=== PATIENT | male | born 1940 | race Caucasian/White ===

== ENCOUNTER 2019-12-09 15:17 | Inpatient (IN) | payer MEDICARE, OTHER ==
[~2019-12-09] VITALS: Ht 172.7 cm; Wt 127.0 kg
[~2019-12-09 15:17] MED LIST: AMLO-258 PO; ATEN25TA PO; ATOR40TA69 PO; ETOMIDATE 2 MG/ML 10 ML VIAL IVP ONE; EXEN10PE3 SQ; HYDR25TA PO; LOSA100T58 PO; OMEP20CA12 PO; SUCCINYLCHOLINE CHLORIDE 20 MG/ML 10 ML VIAL IVP ONE
[2019-12-09] MEDS ORDERED: ONDANSETRON HCL 4 MG/2 ML VIAL ONE (15:45)
[2019-12-09 16:37] LABS: BASOPHILS % (AUTO) 0.2 % (0.0-5.0); HEMATOCRIT 31.5 % (42-54); LYMPHOCYTES % (AUTO) 8.4 % (21.0-51.0); MEAN CORPUSCULAR HEMOGLOBIN 32.1 pg (27.0-33.0); MEAN CORPUSCULAR HGB CONC 34.3 g/dL (32.0-36.0); MEAN CORPUSCULAR VOLUME 93.8 fL (79-99); MONOCYTES % (AUTO) 5.6 % (3.0-13.0); NEUTROPHILS % (AUTO) 85.4 % (40.0-77.0); PLATELET COUNT (AUTO) 219 K/uL (130-400); RED BLOOD CELL COUNT(AUTO) 3.36 MIL/uL (4.50-6.20); RED CELL DISTRIBUTION WIDTH 13.2 % (11.0-15.5); WHITE BLOOD COUNT (AUTO) 18.4 K/uL (4.8-10.8)
[2019-12-09 16:53] LABS: CREATININE 1.7 mg/dL (0.5-1.5); POTASSIUM 3.5 mmol/L (3.5-5.1)
[2019-12-09 16:55] LABS: INR 1.1 (0.85-1.15); PARTIAL THROMBOPLASTIN TIME 24.5 SEC (26.3-35.5); PROTHROMBIN TIME 11.8 SEC (9.6-11.6)
[2019-12-09 16:58] LABS: ALBUMIN 3.1 g/dL (3.5-5.0); BILIRUBIN,TOTAL 0.5 mg/dL (0.2-1.0)
[2019-12-09] MEDS: ZOSYN 3.375GM+NS 50ML 50 ML IV SCH (17:45)
[2019-12-09] MEDS ORDERED: SODIUM CHLORIDE 0.9% 1000ML 1,000 ML IV SCH (17:54)
[2019-12-09] MEDS ORDERED: MORPHINE SULFATE 2 MG/ML 1ML SYG IVP PRN (18:15)
[2019-12-09] MEDS ORDERED: TRAMADOL /APAP 37.5MG/325MG TAB PO PRN (18:15)
[2019-12-09] MEDS ORDERED: PHARMACY COMMUNICATION MISC PRN (18:30)
[2019-12-09] MEDS ORDERED: LORAZEPAM 2 MG/ML 1 ML VIAL IVP PRN (18:30)
[2019-12-09] MEDS ORDERED: CHLORDIAZEPOXIDE HCL 25 MG CAP PO PRN (18:30)
[2019-12-09] MEDS ORDERED: ZOSYN 3.375GM+NS 50ML 50 ML IV ONE (18:30)
[2019-12-09] MEDS ORDERED: HYDRALAZINE HCL 20 MG/ML VIAL IV PRN (18:30)
[2019-12-09] MEDS ORDERED: NOREPINEPHRINE 4MG/NS 250ML 250 ML IV ONE (19:58)
[2019-12-09 20:06] LABS: BASOPHILS % (AUTO) 0.2 % (0.0-5.0); EOSINOPHILS % (AUTO) 0.9 % (0.0-8.0); HEMATOCRIT 29.8 % (42-54); LYMPHOCYTES % (AUTO) 5.7 % (21.0-51.0); MEAN CORPUSCULAR HEMOGLOBIN 32.5 pg (27.0-33.0); MEAN CORPUSCULAR HGB CONC 34.2 g/dL (32.0-36.0); MEAN CORPUSCULAR VOLUME 94.9 fL (79-99); MONOCYTES % (AUTO) 4.7 % (3.0-13.0); NEUTROPHILS % (AUTO) 87.8 % (40.0-77.0); PLATELET COUNT (AUTO) 211 K/uL (130-400); RED BLOOD CELL COUNT(AUTO) 3.14 MIL/uL (4.50-6.20); RED CELL DISTRIBUTION WIDTH 13.3 % (11.0-15.5); WHITE BLOOD COUNT (AUTO) 18.2 K/uL (4.8-10.8)
[2019-12-09 20:18] LABS: HEMOGLOBIN A1C 7.2 % (4.0-6.0)
[2019-12-09 20:19] LABS: ABG BASE EXCESS -3.1 mmol/L (-2.0-3.0); ABG HCO3 21.8 mmol/L (21.0-28.0); ABG OXYGEN SATURATION 97.1 % (95.0-99.0); ABG PCO2 39 mmHg (35-48)
[2019-12-09 20:37] LABS: THYROID STIMULATING HORMONE 0.82 uIU/mL (0.36-3.74)
[2019-12-09] MEDS: FAMOTIDINE/PF 20 MG/2 ML VIAL IV SCH (21:00)
[2019-12-09] MEDS: INSULIN HUMULIN R 100 UNIT/ML 3ML SQ SCH (21:00)
[2019-12-09] MEDS: ATENOLOL 25 MG TABLET PO SCH (21:00)
[2019-12-09] MEDS ORDERED: FAMOTIDINE/PF 20 MG/2 ML VIAL IV ONE (21:51)
[2019-12-09] MEDS ORDERED: INSULIN HUMULIN R 100 UNIT/ML 3ML ONE (21:51)
[2019-12-09] MEDS ORDERED: HUMAN PROTHROMBIN COMPLX(PCC) 500 UNIT KIT IV ONE (22:35)
[2019-12-09] MEDS ORDERED: HUMAN PROTHROMBIN COMPLX(PCC) 500 UNIT KIT IV SCH (23:15)
[2019-12-10] VITALS (28 sets, daily range): BP systolic 70–204; BP diastolic 40–108
[2019-12-10 00:28] LABS: APPEARANCE,URINE Cloudy (CLEAR); BILIRUBIN,URINE Negative (NEGATIVE); COLOR,URINE Dark Yellow (YELLOW); GLUCOSE, URINE (UA) Negative (NEGATIVE); KETONES,URINE Trace mg/dL (NEGATIVE); LEUKOCYTE ESTERASE ,URINE Negative (NEGATIVE); NITRATE,URINE Negative (NEGATIVE); OCCULT BLOOD,URINE Negative (NEGATIVE); PROTEIN,URINE POS 2+ mg/dL (NEGATIVE)
[2019-12-10 00:37] LABS: AMORPHOUS SEDIMENT,UR Many /LPF (None Seen); BACTERIA,URINE None Seen /HPF (None Seen); MUCUS,URINE Many LPF (None Seen); RBC,URINE 0-1 /HPF (0-1); SQUAMOUS EPITHELIAL CELL,UR Moderate /HPF (0-2); WBC,URINE None Seen /HPF (0-1)
[2019-12-10 01:18] LABS: CREATININE,URINE RANDOM 258 mg/dL (30-135); SODIUM,URINE RANDOM 51 mmol/l (40-220)
[2019-12-10] MEDS ORDERED: LACTATED RINGERS 1000ML 1,000 ML IV ONE (01:43)
[2019-12-10] MEDS ORDERED: LACTATED RINGERS 1000ML 1,000 ML IV SCH (03:30)
[2019-12-10] MEDS ORDERED: ONDANSETRON HCL 4 MG/2 ML VIAL ONE (04:43)
[2019-12-10] MEDS: ZOSYN 3.375GM+NS 50ML 50 ML IV SCH ×2 (05:28→16:56)
[2019-12-10 06:12] LABS: BASOPHILS % (AUTO) 0.1 % (0.0-5.0); HEMATOCRIT 27.1 % (42-54); LYMPHOCYTES % (AUTO) 8.5 % (21.0-51.0); MEAN CORPUSCULAR HEMOGLOBIN 32.9 pg (27.0-33.0); MEAN CORPUSCULAR HGB CONC 35.4 g/dL (32.0-36.0); MEAN CORPUSCULAR VOLUME 92.8 fL (79-99); MONOCYTES % (AUTO) 8.8 % (3.0-13.0); PLATELET COUNT (AUTO) 207 K/uL (130-400); RED BLOOD CELL COUNT(AUTO) 2.92 MIL/uL (4.50-6.20); RED CELL DISTRIBUTION WIDTH 13.5 % (11.0-15.5); WHITE BLOOD COUNT (AUTO) 16.5 K/uL (4.8-10.8)
[2019-12-10 06:22] LABS: CREATININE 2.7 mg/dL (0.5-1.5); POTASSIUM 4.2 mmol/L (3.5-5.1)
[2019-12-10] MEDS ORDERED: SIMV40TA59 PO (07:45)
[2019-12-10] MEDS ORDERED: ASPI-556 PO (07:45)
[2019-12-10] MEDS ORDERED: APIX5TAB PO (07:45)
[2019-12-10] MEDS ORDERED: METF-444 PO (07:45)
--- NOTE | 2019-12-10 08:00 | NUR ---
assessment assumed care. aa&ox3. no distress noted. reports feeling "sore" from lower and mid back, relieved with rest. o2 2l nc. bedside monitoring. levophed drip infusing via piv left hand. no signs of infiltration. weaning as per icu protocol. oakes with scant amt of urine in bag. valuables at bedside- wallet and yellow necklace. called security to put items in safe per patient's consent. full assessment documented.
[2019-12-10] MEDS: INSULIN HUMULIN R 100 UNIT/ML 3ML SQ SCH ×4 (08:06→21:00)
[2019-12-10] MEDS ORDERED: MULTIVITAMIN TABLET PO SCH (09:00)
[2019-12-10] MEDS ORDERED: FOLIC ACID 1 MG TABLET PO SCH (09:00)
[2019-12-10] MEDS ORDERED: THIAMINE HCL 100 MG TABLET PO SCH (09:00)
[2019-12-10] MEDS: ATENOLOL 25 MG TABLET PO SCH ×2 (09:00→21:00)
[2019-12-10] MEDS: FAMOTIDINE/PF 20 MG/2 ML VIAL IV SCH (09:23)
[2019-12-10] MEDS ORDERED: SODIUM CHLORIDE 0.9% 1000ML 2,000 ML IV ONE (12:27)
[2019-12-10] MEDS ORDERED: SODIUM CHLORIDE 0.9% 1000ML 1,000 ML IV SCH (12:30)
[2019-12-10] MEDS: SODIUM CHLORIDE 0.9% 1000ML IV SCH ×2 (13:00→21:20)
[2019-12-10 14:18] LABS: BASOPHILS % (AUTO) 0.1 % (0.0-5.0); HEMATOCRIT 24.3 % (42-54); LYMPHOCYTES % (AUTO) 9.9 % (21.0-51.0); MEAN CORPUSCULAR HGB CONC 34.2 g/dL (32.0-36.0); MEAN CORPUSCULAR VOLUME 93.8 fL (79-99); MONOCYTES % (AUTO) 12.6 % (3.0-13.0); NEUTROPHILS % (AUTO) 76.6 % (40.0-77.0); PLATELET COUNT (AUTO) 179 K/uL (130-400); RED BLOOD CELL COUNT(AUTO) 2.59 MIL/uL (4.50-6.20); WHITE BLOOD COUNT (AUTO) 17.2 K/uL (4.8-10.8)
--- NOTE | 2019-12-10 16:30 | NUR ---
CM NOTE CM attempted phone call to phone number in chart [phone]. No answer, unable to leave message. CM to reattempt call.
[2019-12-10] MEDS ORDERED: PHARMACY COMMUNICATION MISC SCH ×3 (18:15→21:00)
[2019-12-10 18:42] LABS: ABG BASE EXCESS -14.6 mmol/L (-2.0-3.0); ABG HCO3 12.3 mmol/L (21.0-28.0); ABG OXYGEN SATURATION 98.8 % (95.0-99.0); ABG PCO2 33 mmHg (35-48)
[2019-12-10] MEDS ORDERED: SODIUM BICARB 50MEQ 50ML VIAL ONE (18:44)
[2019-12-10 19:00] LABS: BASOPHILS % (AUTO) 0.2 % (0.0-5.0); EOSINOPHILS % (AUTO) 0.1 % (0.0-8.0); HEMATOCRIT 23.1 % (42-54); LYMPHOCYTES % (AUTO) 20.4 % (21.0-51.0); MEAN CORPUSCULAR HEMOGLOBIN 32.3 pg (27.0-33.0); MEAN CORPUSCULAR HGB CONC 32.5 g/dL (32.0-36.0); MEAN CORPUSCULAR VOLUME 99.6 fL (79-99); MONOCYTES % (AUTO) 7.6 % (3.0-13.0); NEUTROPHILS % (AUTO) 70.4 % (40.0-77.0); NUCLEATED RED BLOOD CELLS 0.1 % (0.0-0.19); PLATELET COUNT (AUTO) 183 K/uL (130-400); RED BLOOD CELL COUNT(AUTO) 2.32 MIL/uL (4.50-6.20); RED CELL DISTRIBUTION WIDTH 14.4 % (11.0-15.5); WHITE BLOOD COUNT (AUTO) 19.7 K/uL (4.8-10.8)
[2019-12-10 19:05] LABS: INR 1.06 (0.85-1.15); PROTHROMBIN TIME 11.4 SEC (9.6-11.6)
[2019-12-10 19:06] LABS: CREATININE 3.7 mg/dL (0.5-1.5); POTASSIUM 3.9 mmol/L (3.5-5.1)
[2019-12-10 19:16] LABS: ALBUMIN 2.6 g/dL (3.5-5.0); BILIRUBIN,TOTAL 0.5 mg/dL (0.2-1.0); TOTAL PROTEIN, SERUM 5.5 g/dL (6.0-8.3)
[2019-12-10] MEDS ORDERED: SODIUM BICARB 50MEQ 50ML VIAL IV STA (19:20)
[2019-12-10] MEDS ORDERED: NOREPINEPHRINE 4MG/NS 250ML 250 ML IV ONE (19:29)
[2019-12-10] MEDS ORDERED: SODIUM CHLORIDE 0.9% 500ML 500 ML IV ONE (19:30)
[2019-12-10] MEDS ORDERED: NOREPINEPHRINE BITARTRATE 8 MG/NS 250ML IV SCH ×2 (21:00)
[2019-12-10] MEDS: MIDAZOLAM 50MG-0.9% NS 50ML 50 ML IV SCH (21:22)
[2019-12-10 22:21] LABS: ABG BASE EXCESS -5.8 mmol/L (-2.0-3.0); ABG HCO3 19.1 mmol/L (21.0-28.0); ABG OXYGEN SATURATION 98.6 % (95.0-99.0); ABG PCO2 35 mmHg (35-48)
[2019-12-10] MEDS ORDERED: HUMAN PROTHROMBIN COMPLX(PCC) 500 UNIT KIT IV SCH (23:00)
[2019-12-11] VITALS (24 sets, daily range): BP systolic 100–125; BP diastolic 42–60
[2019-12-11 00:19] LABS: BASOPHILS % (AUTO) 0.2 % (0.0-5.0); EOSINOPHILS % (AUTO) 0.9 % (0.0-8.0); HEMATOCRIT 26.3 % (42-54); LYMPHOCYTES % (AUTO) 8.2 % (21.0-51.0); MEAN CORPUSCULAR HEMOGLOBIN 31.6 pg (27.0-33.0); MEAN CORPUSCULAR VOLUME 90.4 fL (79-99); MONOCYTES % (AUTO) 12.1 % (3.0-13.0); NEUTROPHILS % (AUTO) 77.6 % (40.0-77.0); PLATELET COUNT (AUTO) 147 K/uL (130-400); RED BLOOD CELL COUNT(AUTO) 2.91 MIL/uL (4.50-6.20); RED CELL DISTRIBUTION WIDTH 13.6 % (11.0-15.5); WHITE BLOOD COUNT (AUTO) 17.9 K/uL (4.8-10.8)
[2019-12-11 04:20] LABS: BASOPHILS % (AUTO) 0.2 % (0.0-5.0); EOSINOPHILS % (AUTO) 0.7 % (0.0-8.0); HEMATOCRIT 26.7 % (42-54); LYMPHOCYTES % (AUTO) 9.5 % (21.0-51.0); MEAN CORPUSCULAR HGB CONC 34.8 g/dL (32.0-36.0); MONOCYTES % (AUTO) 12.3 % (3.0-13.0); NEUTROPHILS % (AUTO) 76.3 % (40.0-77.0); PLATELET COUNT (AUTO) 148 K/uL (130-400); RED CELL DISTRIBUTION WIDTH 14.2 % (11.0-15.5); WHITE BLOOD COUNT (AUTO) 17.7 K/uL (4.8-10.8)
[2019-12-11 04:40] LABS: CREATININE 3.6 mg/dL (0.5-1.5); POTASSIUM 3.9 mmol/L (3.5-5.1)
[2019-12-11 04:54] LABS: % IRON SATURATION 31.1 % (30-44)
[2019-12-11 05:03] LABS: ABG BASE EXCESS -3.2 mmol/L (-2.0-3.0); ABG HCO3 20.7 mmol/L (21.0-28.0); ABG PCO2 34 mmHg (35-48)
[2019-12-11] MEDS: SODIUM CHLORIDE 0.9% 1000ML IV SCH ×3 (05:13→21:00)
[2019-12-11] MEDS: ZOSYN 3.375GM+NS 50ML 50 ML IV SCH ×2 (06:13→17:13)
[2019-12-11] MEDS: INSULIN HUMULIN R 100 UNIT/ML 3ML SQ SCH ×4 (07:02→21:00)
[2019-12-11] MEDS ORDERED: SODIUM CHLORIDE 0.9% 1000ML 1,000 ML IV SCH (09:00)
--- NOTE | 2019-12-11 09:08 | NUR ---
NOTIFIED DR SIERRA (ON-CALL FOR [facility]) OF CONSULT UPDATED REGARDING PT'S STATUS AND CHAIN OF EVENTS. ORDERS RECEIVED AND CARRIED OUT.
[2019-12-11 09:29] LABS: HEMATOCRIT 24.3 % (42-54); MEAN CORPUSCULAR HEMOGLOBIN 30.8 pg (27.0-33.0); PLATELET COUNT (AUTO) 148 K/uL (130-400); RED BLOOD CELL COUNT(AUTO) 2.76 MIL/uL (4.50-6.20); RED CELL DISTRIBUTION WIDTH 14.6 % (11.0-15.5); WHITE BLOOD COUNT (AUTO) 15.3 K/uL (4.8-10.8)
[2019-12-11] MEDS ORDERED: MAGNESIUM 2GM PREMIX 50ML 50 ML IV ONE (09:59)
[2019-12-11] MEDS: MIDAZOLAM 50MG-0.9% NS 50ML 50 ML IV SCH (10:05)
[2019-12-11] MEDS ORDERED: PHARMACY COMMUNICATION MISC SCH ×3 (10:15→19:45)
[2019-12-11] MEDS ORDERED: NOREPINEPHRINE BITARTRATE 8 MG in DEXTROSE 5%-WATER 250 ML IV SCH (10:15)
[2019-12-11 10:24] LABS: LYMPHOCYTES % (MANUAL) 5 % (22-44); MAN.DIFF COMMENT-IMPRESSION MANUAL DIFFERENTIAL; MONOCYTES % (MANUAL) 1 % (2-9); PLATELET MORPHOLOGY COMMENT ADEQUATE; SEGMENTED NEUTROPHILS % 94 % (40-70)
--- NOTE | 2019-12-11 10:31 | NUR ---
DR SIERRA HERE TO SEE PT UPDATED. HE REVIEWED CHART, MEDICATIONS, LABS, PATIENT STATUS. ORDERS RECEIVED AND CARRIED OUT.
--- NOTE | 2019-12-11 11:27 | NUR ---
CALLED [employer] FOR PACEMAKER INTERROGATION
[2019-12-11] MEDS ORDERED: SODIUM CHLORIDE 0.9% 500ML 500 ML IV ONE (14:06)
--- NOTE | 2019-12-11 14:42 | NUR ---
BLADDER PRESSURE 14mmHg
[2019-12-11 15:54] LABS: CREATININE 3.9 mg/dL (0.5-1.5); POTASSIUM 3.7 mmol/L (3.5-5.1)
--- NOTE | 2019-12-11 15:54 | NUR ---
DEFERRING INITIAL CASE MANAGEMENT DC PLANNING INTERVIEW AT THIS TIME, WILL FOLLOW WHEN CONDITION STABILIZES Addendum: 12/11/19 at 1556 by JOY ANDREWS RN CM Amended: Links added.
[2019-12-11 16:36] LABS: ALBUMIN 2.5 g/dL (3.5-5.0); BILIRUBIN,DIRECT 0.2 mg/dL (0.0-0.3); BILIRUBIN,TOTAL 0.7 mg/dL (0.2-1.0); TOTAL PROTEIN, SERUM 5.5 g/dL (6.0-8.3)
[2019-12-11] MEDS: PANTOPRAZOLE 40 MG/VIAL IVP SCH (17:40)
[2019-12-11] MEDS ORDERED: FENTANYL 1000MCG+NS 100ML 100 ML ONE (19:43)
[2019-12-11] MEDS ORDERED: HUMAN PROTHROMBIN COMPLX(PCC) 500 UNIT KIT IV SCH (20:00)
[2019-12-11] MEDS ORDERED: M.V.I. IV [ADULT] 10 ML, FOLIC ACID 1 MG, THIAMINE HCL 100 MG in SODIUM CHLORIDE 0.9% 1... IV ONE (20:30)
[2019-12-11] MEDS ORDERED: M.V.I. IV [ADULT] 10 ML, FOLIC ACID 1 MG, THIAMINE HCL 100 MG in SODIUM CHLORIDE 0.9% 1... IV SCH (21:00)
[2019-12-11 21:36] LABS: ABG BASE EXCESS -4.3 mmol/L (-2.0-3.0); ABG HCO3 18.9 mmol/L (21.0-28.0); ABG OXYGEN SATURATION 96.7 % (95.0-99.0); ABG PCO2 30 mmHg (35-48)
[2019-12-12] VITALS (21 sets, daily range): BP systolic 95–124; BP diastolic 43–62
[2019-12-12 03:56] LABS: BASOPHILS % (AUTO) 0.2 % (0.0-5.0); EOSINOPHILS % (AUTO) 0.1 % (0.0-8.0); HEMATOCRIT 21.8 % (42-54); LYMPHOCYTES % (AUTO) 9.7 % (21.0-51.0); MEAN CORPUSCULAR HEMOGLOBIN 31.6 pg (27.0-33.0); MEAN CORPUSCULAR HGB CONC 34.4 g/dL (32.0-36.0); MONOCYTES % (AUTO) 11.5 % (3.0-13.0); NEUTROPHILS % (AUTO) 77.6 % (40.0-77.0); PLATELET COUNT (AUTO) 138 K/uL (130-400); RED BLOOD CELL COUNT(AUTO) 2.37 MIL/uL (4.50-6.20); RED CELL DISTRIBUTION WIDTH 15.1 % (11.0-15.5); WHITE BLOOD COUNT (AUTO) 12.9 K/uL (4.8-10.8)
[2019-12-12 04:21] LABS: ALBUMIN 2.3 g/dL (3.5-5.0); BILIRUBIN,TOTAL 0.7 mg/dL (0.2-1.0); CREATININE 3.8 mg/dL (0.5-1.5); POTASSIUM 3.6 mmol/L (3.5-5.1); TOTAL PROTEIN, SERUM 5.4 g/dL (6.0-8.3)
[2019-12-12] MEDS: ZOSYN 3.375GM+NS 50ML 50 ML IV SCH ×2 (06:23→17:42)
[2019-12-12] MEDS: SODIUM CHLORIDE 0.9% 1000ML IV SCH ×3 (06:25→22:05)
[2019-12-12] MEDS: INSULIN HUMULIN R 100 UNIT/ML 3ML SQ SCH ×4 (06:45→21:00)
[2019-12-12] MEDS: PANTOPRAZOLE 40 MG/VIAL IVP SCH (09:00)
--- NOTE | 2019-12-12 09:45 | NUR ---
consulted dr casillas. notified office. order entered in computer.
[2019-12-12] MEDS: FENTANYL 1000MCG+NS 100ML IV.SOLN IV SCH ×2 (10:32→22:02)
[2019-12-12] MEDS ORDERED: LIDOCAINE HCL-MPF 1% 2ML VIAL IJ PRN (10:45)
[2019-12-12] MEDS ORDERED: NITROGLYCERIN 0.4 MG SL TAB SL PRN (10:45)
[2019-12-12] MEDS ORDERED: HEPARIN SODIUM 5000UNIT/ML 1ML VIAL IJ PRN ×2 (10:45)
[2019-12-12] MEDS ORDERED: 0.9% SODIUM CHLORIDE 1000 ML IV BAG IV PRN (10:45)
[2019-12-12] MEDS ORDERED: ACETAMINOPHEN 325 MG TAB PO PRN (10:45)
[2019-12-12] MEDS ORDERED: SODIUM CHLORIDE 0.9% 1000ML 1,000 ML IV PRN (10:45)
[2019-12-12] MEDS ORDERED: ALBUMIN (HUMAN) 25% 100 ML IV ONE (10:58)
--- NOTE | 2019-12-12 11:23 | NUR ---
DC PLAN PATIENT VENTED STILL UNSTABLE. CM WILL CONTINUE TO FOLLOW. Addendum: 12/12/19 at 1124 by ALVARO ONEILL RN CM Amended: Links added.
--- NOTE | 2019-12-12 13:37 | NUR ---
RD NOTIFICATION - TUBE FEEDING Recommend Initiate continuous Nepro @20mls/hr for first5 hours Increase rate as tolerated by 5mL every 5 hours to goal rate. Goal Rate: 45mls/hr (1944 kcal, 87gm Protein, 785mL Free H2) Recommended Flushes: 130mL B1siplz *RN notified, Rec form provided. Pt intubated and sedated. S/p Cardiac arrest and respiratory failure, as per EMR. Pt with Obesity Class III (BMI 40.0). Pt with moderate fluid retention (BLE 3+ edema). Altered renal labs. RD to continue to monitor. Please notify as additional nutrition concerns arise. Thank you. Addendum: 12/12/19 at [address] Amended: Links added.
[2019-12-12] MEDS ORDERED: IOHEXOL 350 MG/ML 100ML INFUS..BTL IV ONE (13:47)
[2019-12-12] MEDS: MIDAZOLAM 50MG-0.9% NS 50ML 50 ML IV SCH ×2 (17:42→22:01)
[2019-12-12] MEDS: M.V.I. IV [ADULT] 10 ML, FOLIC ACID 1 MG, THIAMINE HCL 100 MG in SODIUM CHLORIDE 0.9% 1... IV SCH (22:01)
[2019-12-13] VITALS (21 sets, daily range): BP systolic 107–135; BP diastolic 45–78
[2019-12-13 04:12] LABS: BASOPHILS % (AUTO) 0.1 % (0.0-5.0); EOSINOPHILS % (AUTO) 1.2 % (0.0-8.0); LYMPHOCYTES % (AUTO) 11.1 % (21.0-51.0); MEAN CORPUSCULAR HEMOGLOBIN 31.2 pg (27.0-33.0); MEAN CORPUSCULAR HGB CONC 33.3 g/dL (32.0-36.0); MEAN CORPUSCULAR VOLUME 93.7 fL (79-99); MONOCYTES % (AUTO) 11.7 % (3.0-13.0); NEUTROPHILS % (AUTO) 75.1 % (40.0-77.0); PLATELET COUNT (AUTO) 144 K/uL (130-400); RED BLOOD CELL COUNT(AUTO) 1.89 MIL/uL (4.50-6.20); RED CELL DISTRIBUTION WIDTH 14.9 % (11.0-15.5); WHITE BLOOD COUNT (AUTO) 7.8 K/uL (4.8-10.8)
[2019-12-13 04:19] LABS: HEMATOCRIT 17.7 % (42-54)
[2019-12-13 04:48] LABS: BILIRUBIN,TOTAL 0.7 mg/dL (0.2-1.0); CREATININE 2.7 mg/dL (0.5-1.5); POTASSIUM 3.2 mmol/L (3.5-5.1); TOTAL PROTEIN, SERUM 4.9 g/dL (6.0-8.3)
[2019-12-13] MEDS: SODIUM CHLORIDE 0.9% 1000ML IV SCH ×3 (05:00→21:00)
[2019-12-13] MEDS: ZOSYN 3.375GM+NS 50ML 50 ML IV SCH ×2 (06:05→17:18)
[2019-12-13] MEDS: INSULIN HUMULIN R 100 UNIT/ML 3ML SQ SCH ×4 (06:31→21:00)
[2019-12-13 08:11] LABS: HEPATITIS Bs ANTIGEN SCREEN P Negative (Negative)
[2019-12-13] MEDS ORDERED: SODIUM CHLORIDE 0.9% 500ML 500 ML IV ONE (10:29)
[2019-12-13] MEDS: MIDAZOLAM 50MG-0.9% NS 50ML 50 ML IV SCH ×2 (11:58→15:06)
[2019-12-13 12:36] LABS: INR 0.89 (0.85-1.15); PARTIAL THROMBOPLASTIN TIME 31.1 SEC (26.3-35.5); PROTHROMBIN TIME 9.7 SEC (9.6-11.6)
[2019-12-13] MEDS: PANTOPRAZOLE 40 MG/VIAL IVP SCH (12:53)
--- NOTE | 2019-12-13 14:00 | NUR ---
INITIATED VENT WEANING DECREASED SEDATION. PATIENT BECAME VERY RESTLESS, REACHED AND PULLED ON ET TUBE. WILL INITIATE PRECEDEX ORDERED BY DR MALDONADO.
[2019-12-13] MEDS: FENTANYL 1000MCG+NS 100ML IV.SOLN IV SCH (15:06)
--- NOTE | 2019-12-13 16:07 | NUR ---
DR COLEMAN HERE TO SEE PT UPDATED. HE SPOKE TO DAUGHTER, SPENCER CONNOR IN DETAIL REGARDING PATIENT'S STATUS AND PLAN OF CARE. HE HAD AN EXTENSIVE CONVERSATION WITH HER AND ANSWERED HER QUESTIONS IN DETAIL. ORDER RECEIVED FOR DDAVP.
[2019-12-13] MEDS: SODIUM CHLORIDE 0.9% IJ SCH (17:24)
[2019-12-13] MEDS: DESMOPRESSIN ACETATE IJ SCH (17:24)
[2019-12-13 17:42] LABS: ABG BASE EXCESS -2.4 mmol/L (-2.0-3.0); ABG HCO3 21.1 mmol/L (21.0-28.0); ABG OXYGEN SATURATION 91.7 % (95.0-99.0); ABG PCO2 33 mmHg (35-48)
[2019-12-13 20:58] LABS: BASOPHILS % (AUTO) 0.1 % (0.0-5.0); EOSINOPHILS % (AUTO) 0.6 % (0.0-8.0); HEMATOCRIT 26.5 % (42-54); LYMPHOCYTES % (AUTO) 6.6 % (21.0-51.0); MEAN CORPUSCULAR HEMOGLOBIN 30.5 pg (27.0-33.0); MEAN CORPUSCULAR HGB CONC 32.8 g/dL (32.0-36.0); MONOCYTES % (AUTO) 9.5 % (3.0-13.0); NEUTROPHILS % (AUTO) 82.4 % (40.0-77.0); PLATELET COUNT (AUTO) 158 K/uL (130-400); RED BLOOD CELL COUNT(AUTO) 2.85 MIL/uL (4.50-6.20); RED CELL DISTRIBUTION WIDTH 15.5 % (11.0-15.5); WHITE BLOOD COUNT (AUTO) 10.6 K/uL (4.8-10.8)
[2019-12-13] MEDS: M.V.I. IV [ADULT] 10 ML, FOLIC ACID 1 MG, THIAMINE HCL 100 MG in SODIUM CHLORIDE 0.9% 1... IV SCH (21:00)
[2019-12-14] VITALS (34 sets, daily range): BP systolic 94–139; BP diastolic 45–69
[2019-12-14] MEDS: MIDAZOLAM 50MG-0.9% NS 50ML 50 ML IV SCH (01:11)
[2019-12-14] MEDS ORDERED: NOREPINEPHRINE BITARTRATE 1 MG/1 ML ML IV ONE (02:56)
[2019-12-14 06:27] LABS: BASOPHILS % (AUTO) 0.2 % (0.0-5.0); EOSINOPHILS % (AUTO) 2.5 % (0.0-8.0); LYMPHOCYTES % (AUTO) 10.7 % (21.0-51.0); MEAN CORPUSCULAR HEMOGLOBIN 31.3 pg (27.0-33.0); MEAN CORPUSCULAR HGB CONC 33.9 g/dL (32.0-36.0); MEAN CORPUSCULAR VOLUME 92.1 fL (79-99); MONOCYTES % (AUTO) 12.7 % (3.0-13.0); NEUTROPHILS % (AUTO) 73.4 % (40.0-77.0); PLATELET COUNT (AUTO) 175 K/uL (130-400); RED BLOOD CELL COUNT(AUTO) 3.04 MIL/uL (4.50-6.20); RED CELL DISTRIBUTION WIDTH 15.6 % (11.0-15.5); WHITE BLOOD COUNT (AUTO) 9.4 K/uL (4.8-10.8)
[2019-12-14] MEDS: SODIUM CHLORIDE 0.9% 1000ML IV SCH ×3 (06:30→23:59)
[2019-12-14] MEDS: ZOSYN 3.375GM+NS 50ML 50 ML IV SCH ×2 (06:30→18:26)
[2019-12-14 06:32] LABS: ALBUMIN 2.4 g/dL (3.5-5.0); BILIRUBIN,TOTAL 1.3 mg/dL (0.2-1.0); CREATININE 2.6 mg/dL (0.5-1.5); POTASSIUM 3.4 mmol/L (3.5-5.1); TOTAL PROTEIN, SERUM 6.3 g/dL (6.0-8.3)
[2019-12-14] MEDS: INSULIN HUMULIN R 100 UNIT/ML 3ML SQ SCH ×3 (06:34→18:29)
[2019-12-14] MEDS ORDERED: PHARMACY COMMUNICATION MISC SCH (07:15)
[2019-12-14] MEDS ORDERED: FENTANYL 2500MCG+NS 250ML 250 ML IV PRN (07:45)
[2019-12-14] MEDS: M.V.I. IV [ADULT] 10 ML, FOLIC ACID 1 MG, THIAMINE HCL 100 MG in SODIUM CHLORIDE 0.9% 1... IV SCH (08:13)
[2019-12-14] MEDS: DEXMEDETOMIDINE HCL 400 MCG in SODIUM CHLORIDE 0.9% 100 ML IV SCH ×2 (08:23→21:50)
[2019-12-14] MEDS: PANTOPRAZOLE 40 MG/VIAL IVP SCH (08:30)
--- NOTE | 2019-12-14 08:40 | NUR ---
WEANED OFF FENTANYL AND VERSED, OFF LEVOPHED, STARTED LOW DOSE PRECEDEX TO WEAN OFF VENT. REACTS TO TACTILE STIMULATION
[2019-12-14] MEDS ORDERED: DESMOPRESSIN ACETATE 4 MCG/ML 0 MCG in SODIUM CHLORIDE 0.9% 50 ML IV SCH (09:00)
[2019-12-14] MEDS: FUROSEMIDE 10 MG/ML 4ML VIAL IV SCH ×2 (12:36→23:58)
[2019-12-14] MEDS: LACTULOSE 20 GM/30 ML UDCUP PO PRN (12:36)
--- NOTE | 2019-12-14 14:09 | NUR ---
[place] PLAN VISITED WITH PATIENT. PATIENT VENTED. GABBI WILL CONTINUE TO FOLLOW. Addendum: 12/14/19 at 1410 by ALVARO ONEILL RN CM Amended: Links added.
--- NOTE | 2019-12-14 17:00 | NUR ---
CPAP MODE TOLERATED FOR A FEW HOURS, BUT PT IS NOT WAKING UP ENOUGH TO BE OFF VENT. USING ACCESSORY MUSCLES TO BREATHE. SHALLOW BREATHING
--- NOTE | 2019-12-14 17:45 | NUR ---
DAUGHTER UPDATED ON PTS CONDITION, AND PLAN OF CARE
[2019-12-14] MEDS: SODIUM CHLORIDE 0.9% IJ SCH (18:26)
[2019-12-14] MEDS: DESMOPRESSIN ACETATE IJ SCH (18:26)
[2019-12-15] VITALS (25 sets, daily range): BP systolic 99–144; BP diastolic 43–81
[2019-12-15] MEDS: INSULIN HUMULIN R 100 UNIT/ML 3ML SQ SCH ×5 (00:05→16:30)
[2019-12-15] MEDS: DEXMEDETOMIDINE HCL 400 MCG in SODIUM CHLORIDE 0.9% 100 ML IV SCH ×2 (02:13→08:54)
[2019-12-15] MEDS: SODIUM CHLORIDE 0.9% 1000ML IV SCH ×2 (05:00→13:00)
[2019-12-15] MEDS: ZOSYN 3.375GM+NS 50ML 50 ML IV SCH ×2 (05:08→19:00)
--- NOTE | 2019-12-15 07:15 | NUR ---
SEDATION TURNED OFF AT THIS TIME. PRECEDEX LOW DOSE. WILL CONTINUE TO MONITOR FOR INCREASED LOC AND WEAN OFF VENTILLATOR
--- NOTE | 2019-12-15 07:30 | NUR ---
DAUGHTER UPDATED ON PTS PLAN OF CARE
[2019-12-15 07:54] LABS: BASOPHILS % (AUTO) 0.1 % (0.0-5.0); EOSINOPHILS % (AUTO) 2.7 % (0.0-8.0); LYMPHOCYTES % (AUTO) 8.9 % (21.0-51.0); MEAN CORPUSCULAR HEMOGLOBIN 31.8 pg (27.0-33.0); MEAN CORPUSCULAR HGB CONC 33.8 g/dL (32.0-36.0); MEAN CORPUSCULAR VOLUME 93.9 fL (79-99); MONOCYTES % (AUTO) 10.5 % (3.0-13.0); NEUTROPHILS % (AUTO) 76.9 % (40.0-77.0); PLATELET COUNT (AUTO) 160 K/uL (130-400); RED BLOOD CELL COUNT(AUTO) 2.77 MIL/uL (4.50-6.20); RED CELL DISTRIBUTION WIDTH 15.6 % (11.0-15.5); WHITE BLOOD COUNT (AUTO) 7.9 K/uL (4.8-10.8)
[2019-12-15 08:07] LABS: ALBUMIN 2.2 g/dL (3.5-5.0); BILIRUBIN,TOTAL 1.2 mg/dL (0.2-1.0); CREATININE 2.5 mg/dL (0.5-1.5); MAGNESIUM 1.6 mg/dL (1.80-2.40); PHOSPHORUS 2.3 mg/dL (2.5-4.9); TOTAL PROTEIN, SERUM 6.2 g/dL (6.0-8.3)
[2019-12-15 08:22] LABS: POTASSIUM 2.6 mmol/L (3.5-5.1)
[2019-12-15 08:33] LABS: INR 0.97 (0.85-1.15); PARTIAL THROMBOPLASTIN TIME 31.9 SEC (26.3-35.5); PROTHROMBIN TIME 10.5 SEC (9.6-11.6)
[2019-12-15] MEDS ORDERED: POTASSIUM CHLORIDE 20 MEQ ERTAB PO PRN (08:45)
[2019-12-15] MEDS ORDERED: LIDOCAINE HCL-MPF 1% 2ML VIAL IV PRN (08:45)
[2019-12-15] MEDS ORDERED: MAGNESIUM 2GM PREMIX 50ML 50 ML IV PRN (08:45)
[2019-12-15] MEDS: PANTOPRAZOLE 40 MG/VIAL IVP SCH (09:03)
[2019-12-15] MEDS: MAGNESIUM 2GM PREMIX 50ML 50 ML IV SCH (09:06)
[2019-12-15] MEDS: ONDANSETRON HCL 4 MG/2 ML VIAL IVP PRN ×2 (09:07→16:16)
[2019-12-15] MEDS: LACTULOSE 20 GM/30 ML UDCUP PO PRN ×2 (09:08→16:16)
[2019-12-15] MEDS: M.V.I. IV [ADULT] 10 ML, FOLIC ACID 1 MG, THIAMINE HCL 100 MG in SODIUM CHLORIDE 0.9% 1... IV SCH (09:28)
[2019-12-15] MEDS: POTASSIUM CHLORIDE 20MEQ/100ML 100 ML IV PRN ×3 (09:39→16:15)
[2019-12-15] MEDS: POTASSIUM CHLORIDE 10% ELIXIR 20 MEQ/15 ML UDCUP PO PRN (09:46)
[2019-12-15] MEDS: IPRATROPIUM/ALBUTEROL SULFATE 3 ML SOLUTION IH PRN ×2 (11:16→18:32)
[2019-12-15] MEDS: FUROSEMIDE 10 MG/ML 4ML VIAL IV SCH (12:45)
[2019-12-15 13:46] LABS: ABG BASE EXCESS -3.7 mmol/L (-2.0-3.0); ABG HCO3 19.7 mmol/L (21.0-28.0); ABG OXYGEN SATURATION 94.3 % (95.0-99.0); ABG PCO2 32 mmHg (35-48)
--- NOTE | 2019-12-15 15:00 | NUR ---
LARGE LIQUID BOWEL MOVEMENT AND PASSING FLATUS. BROWN, NO EVIDENCE OF BLEED NOTED
[2019-12-15 15:28] LABS: PHOSPHORUS 3.1 mg/dL (2.5-4.9); POTASSIUM 3.4 mmol/L (3.5-5.1)
--- NOTE | 2019-12-15 16:00 | NUR ---
PT VERY AGITATED, AGRESSIVE, NOT FOLLOWING COMMANDS, THROWING PUNCHES AT STAFF. STARTED FENTANYL LOW DOSE AND PRECEDEX LOW DOSE TO KEEP PT CALM.
[2019-12-15] MEDS: DOCUSATE NA 100MG/10ML UDCUP PO SCH ×2 (16:15→20:32)
--- NOTE | 2019-12-15 16:26 | NUR ---
RD FOLLOW UP Pt tolerating Tube Feeding, Nepro @30mls/hr at time of screen. Flushes 160mL every 6hours. Pt with improving renal labs. Noted, decreased serum potassium and magnesium, KCl, MgSO4 administered. LBM 12/15/19. Pending possible vent weaning. Recommend continue tube feeding RD to continue to monitor nutritional labs, tolerance, weight. Please notify as additional nutrition concerns arise. Thank you. Addendum: 12/15/19 at [address] Amended: Links added.
[2019-12-15] MEDS: LUBIPROSTONE 24 MCG CAP PO SCH (17:00)
--- NOTE | 2019-12-15 17:00 | NUR ---
PLACED PHONE ON SPEAKER FOR PT TO SPEAK TO DAUGHTER AND FAMILY. PT ABLE TO NOD YES AND OPENED HIS EYES TO THEIR VOICE.
--- NOTE | 2019-12-15 17:59 | NUR ---
TOLERATING CPAP AT THIS TIME. WITH LOW DOSE FENTANYL AND LOW DOSE PRECEDEX. ABLE TO FOLLOW SIMPLE COMMANDS.
[2019-12-15] MEDS ORDERED: ACETAMINOPHEN 650 MG SUPPOSITORY RC ONE ×2 (20:28→21:15)
[2019-12-15] MEDS ORDERED: POTASSIUM CHLORIDE 20 MEQ/100 ML BAG IV SCH (21:00)
[2019-12-16] VITALS (26 sets, daily range): BP systolic 110–147; BP diastolic 45–71
[2019-12-16] MEDS: FUROSEMIDE 10 MG/ML 4ML VIAL IV SCH (00:06)
[2019-12-16 03:38] LABS: HEMATOCRIT 29.5 % (42-54); MEAN CORPUSCULAR HEMOGLOBIN 31.1 pg (27.0-33.0); MEAN CORPUSCULAR HGB CONC 32.9 g/dL (32.0-36.0); MEAN CORPUSCULAR VOLUME 94.6 fL (79-99); RED BLOOD CELL COUNT(AUTO) 3.12 MIL/uL (4.50-6.20); RED CELL DISTRIBUTION WIDTH 15.8 % (11.0-15.5); WHITE BLOOD COUNT (AUTO) 11.2 K/uL (4.8-10.8)
[2019-12-16 03:56] LABS: ALBUMIN 2.2 g/dL (3.5-5.0); BILIRUBIN,TOTAL 1.2 mg/dL (0.2-1.0); CREATININE 2.4 mg/dL (0.5-1.5); MAGNESIUM 1.7 mg/dL (1.80-2.40); TOTAL PROTEIN, SERUM 6.8 g/dL (6.0-8.3)
[2019-12-16] MEDS: MAGNESIUM 2GM PREMIX 50ML 50 ML IV SCH ×2 (05:01→18:51)
[2019-12-16] MEDS: ZOSYN 3.375GM+NS 50ML 50 ML IV SCH (05:02)
[2019-12-16] MEDS: POTASSIUM CHLORIDE 20MEQ/100ML 100 ML IV PRN ×2 (05:02→13:07)
[2019-12-16] MEDS: IPRATROPIUM/ALBUTEROL SULFATE 3 ML SOLUTION IH PRN ×2 (06:37→18:19)
[2019-12-16] MEDS: INSULIN HUMULIN R 100 UNIT/ML 3ML SQ SCH ×4 (06:38→21:00)
[2019-12-16 08:14] LABS: ABG BASE EXCESS -2.1 mmol/L (-2.0-3.0); ABG HCO3 21.1 mmol/L (21.0-28.0); ABG OXYGEN SATURATION 95.9 % (95.0-99.0); ABG PCO2 32 mmHg (35-48)
[2019-12-16] MEDS: DOCUSATE NA 100MG/10ML UDCUP PO SCH ×2 (08:26→20:51)
[2019-12-16] MEDS: THIAMINE HCL 100 MG/ML 2ML VIAL IVP SCH (08:27)
[2019-12-16] MEDS ORDERED: RENAL DOSE IV SCH (09:00)
[2019-12-16] MEDS ORDERED: VANCOMYCIN PROTOCOL PER PHARMACY IV PRN (09:00)
[2019-12-16] MEDS ORDERED: VANCOMYCIN 1GM+NS 250ML 250 ML IV SCH (09:00)
[2019-12-16] MEDS ORDERED: VANCOMYCIN 1.5 GM in SODIUM CHLORIDE 0.9% 250 ML IV SCH (09:15)
[2019-12-16] MEDS ORDERED: COMPOUND IV REFRIGERATED 1 EACH IVSOLN MISC PRN (09:30)
[2019-12-16] MEDS ORDERED: VANCOMYCIN PROTOCOL PER PHARMACY IV SCH (09:30)
--- NOTE | 2019-12-16 09:30 | NUR ---
LOW DOSE SEDATION THROUGHOUT NIGHT. KEPT ON BIPAP MODE, DECREASED BIPAP AT 5 AM. PT CALM AT 0800, FOLLOWING COMMANDS, ABG'S DRAWN, RECEIVED ORDERS TO EXTUBATE
--- NOTE | 2019-12-16 09:45 | NUR ---
EXTUBATED TO BIPAP.TOLERAING WITHOUT AGITATION. AT THIS TIME
[2019-12-16] MEDS: PANTOPRAZOLE 40 MG/VIAL IVP SCH (09:54)
[2019-12-16] MEDS: LUBIPROSTONE 24 MCG CAP PO SCH ×2 (09:59→17:48)
--- NOTE | 2019-12-16 10:00 | NUR ---
INFECTIOUS DISEASE CONSULT. SPOKE TO DR ZURITA
--- NOTE | 2019-12-16 10:01 | NUR ---
DUE TO TEMP 101 LAST NIGHT COLLECTED URINE CULTURE, SPUTUM CULTURE, BLOOD CULTURES, AND STARTED VANCO/
[2019-12-16] MEDS ORDERED: SIMETHICONE 80 MG TAB.CHEW PO PRN (11:30)
[2019-12-16] MEDS: MEROPENEM 1 GM VIAL IVP SCH (12:52)
[2019-12-16] MEDS: FLUCONAZOLE 200 MG/NS 100 ML 100 ML IV SCH (12:52)
[2019-12-16] MEDS: FUROSEMIDE 10 MG/ML 2ML VIAL IVP SCH (12:53)
[2019-12-16] MEDS: ONDANSETRON HCL 4 MG/2 ML VIAL IVP PRN ×2 (12:55→18:42)
[2019-12-16] MEDS: POTASSIUM CHLORIDE 10% ELIXIR 20 MEQ/15 ML UDCUP PO PRN (13:05)
--- NOTE | 2019-12-16 13:15 | NUR ---
HOLD EVALUATION Pt EXTUBATED TODAY. HOLD EVALUATION AT THIS TIME. RESOLUTION MANAGER WILL FOLLOW Pt TO EVALUATE 24 HRS POST EXTUBATION. RESOLUTION MANAGER COORDINATED WITH NURSE LARA. Addendum: 12/16/[address] KARLI BLANCO Amended: Links added.
[2019-12-16] MEDS ORDERED: PHARMACY COMMUNICATION MISC SCH (15:00)
[2019-12-16] MEDS: LINEZOLID 600 MG/ISO-OSM 300 ML IV SCH ×2 (15:02→23:58)
[2019-12-16 16:13] LABS: MAGNESIUM 1.9 mg/dL (1.80-2.40); POTASSIUM 3.6 mmol/L (3.5-5.1)
[2019-12-16 20:58] LABS: ABG BASE EXCESS 1.6 mmol/L (-2.0-3.0); ABG HCO3 26.3 mmol/L (21.0-28.0); ABG OXYGEN SATURATION 95.5 % (95.0-99.0); ABG PCO2 42 mmHg (35-48)
--- NOTE | 2019-12-16 21:12 | NUR ---
Spoke with Dr Carvajal. Reported ABG results. Ordered keep patient on Bipap 12/6, BR-16, FiO2-40%.
[2019-12-17] VITALS (24 sets, daily range): BP systolic 93–154; BP diastolic 45–79
[2019-12-17] MEDS: FUROSEMIDE 10 MG/ML 2ML VIAL IVP SCH ×2 (00:16→11:38)
[2019-12-17] MEDS: MEROPENEM 1 GM VIAL IVP SCH ×2 (00:16→11:38)
[2019-12-17] MEDS: INSULIN HUMULIN R 100 UNIT/ML 3ML SQ SCH ×4 (00:30→18:35)
[2019-12-17 06:00] LABS: BASOPHILS % (AUTO) 0.2 % (0.0-5.0); LYMPHOCYTES % (AUTO) 7.1 % (21.0-51.0); MEAN CORPUSCULAR HEMOGLOBIN 30.9 pg (27.0-33.0); MEAN CORPUSCULAR HGB CONC 32.8 g/dL (32.0-36.0); MEAN CORPUSCULAR VOLUME 94.5 fL (79-99); NEUTROPHILS % (AUTO) 79.4 % (40.0-77.0); PLATELET COUNT (AUTO) 218 K/uL (130-400); RED BLOOD CELL COUNT(AUTO) 3.07 MIL/uL (4.50-6.20); RED CELL DISTRIBUTION WIDTH 15.6 % (11.0-15.5); WHITE BLOOD COUNT (AUTO) 10.4 K/uL (4.8-10.8)
[2019-12-17] MEDS: IPRATROPIUM/ALBUTEROL SULFATE 3 ML SOLUTION IH PRN (06:09)
[2019-12-17 06:17] LABS: ALBUMIN 2.2 g/dL (3.5-5.0); BILIRUBIN,TOTAL 1.3 mg/dL (0.2-1.0); CREATININE 2.2 mg/dL (0.5-1.5); PHOSPHORUS 2.2 mg/dL (2.5-4.9); TOTAL PROTEIN, SERUM 6.5 g/dL (6.0-8.3)
[2019-12-17] MEDS: POTASSIUM CHLORIDE 20MEQ/100ML 100 ML IV PRN (06:50)
[2019-12-17 07:33] LABS: ABG BASE EXCESS 3.2 mmol/L (-2.0-3.0); ABG HCO3 27.5 mmol/L (21.0-28.0); ABG OXYGEN SATURATION 95.2 % (95.0-99.0); ABG PCO2 41 mmHg (35-48)
[2019-12-17] MEDS: FLUCONAZOLE 200 MG/NS 100 ML 100 ML IV SCH (09:22)
[2019-12-17] MEDS: DOCUSATE NA 100MG/10ML UDCUP PO SCH ×2 (09:22→21:41)
[2019-12-17] MEDS: THIAMINE HCL 100 MG/ML 2ML VIAL IVP SCH (09:22)
[2019-12-17] MEDS: LUBIPROSTONE 24 MCG CAP PO SCH ×2 (09:22→17:58)
[2019-12-17] MEDS: PANTOPRAZOLE 40 MG/VIAL IVP SCH (09:28)
[2019-12-17] MEDS: POTASSIUM CHLORIDE 10% ELIXIR 20 MEQ/15 ML UDCUP PO PRN ×4 (09:31→17:57)
[2019-12-17] MEDS: LINEZOLID 600 MG/ISO-OSM 300 ML IV SCH ×2 (12:29→23:26)
[2019-12-17 13:44] LABS: APPEARANCE,URINE Turbid (CLEAR); BILIRUBIN,URINE Negative (NEGATIVE); COLOR,URINE Yellow (YELLOW); GLUCOSE, URINE (UA) TRACE mg/dL (NEGATIVE); KETONES,URINE Negative (NEGATIVE); LEUKOCYTE ESTERASE ,URINE Trace (NEGATIVE); NITRATE,URINE Negative (NEGATIVE); OCCULT BLOOD,URINE Moderate (NEGATIVE); PH,URINE 5.5 (5.0-8.0); PROTEIN,URINE POS 1+ mg/dL (NEGATIVE)
[2019-12-17 13:57] LABS: AMORPHOUS SEDIMENT,UR Moderate /LPF (None Seen); BACTERIA,URINE Few /HPF (None Seen); SQUAMOUS EPITHELIAL CELL,UR 0-2 /HPF (0-2)
[2019-12-18] VITALS (24 sets, daily range): BP systolic 104–165; BP diastolic 60–93
[2019-12-18] MEDS: MEROPENEM 1 GM VIAL IVP SCH ×3 (01:55→23:58)
[2019-12-18] MEDS: FUROSEMIDE 10 MG/ML 2ML VIAL IVP SCH ×2 (01:58→12:23)
[2019-12-18] MEDS: IPRATROPIUM/ALBUTEROL SULFATE 3 ML SOLUTION IH PRN ×2 (06:08→18:45)
[2019-12-18 06:44] LABS: BASOPHILS % (AUTO) 0.4 % (0.0-5.0); EOSINOPHILS % (AUTO) 1.9 % (0.0-8.0); HEMATOCRIT 32.3 % (42-54); LYMPHOCYTES % (AUTO) 11.1 % (21.0-51.0); MEAN CORPUSCULAR HEMOGLOBIN 31.1 pg (27.0-33.0); MEAN CORPUSCULAR HGB CONC 32.2 g/dL (32.0-36.0); MEAN CORPUSCULAR VOLUME 96.7 fL (79-99); NEUTROPHILS % (AUTO) 75.1 % (40.0-77.0); PLATELET COUNT (AUTO) 265 K/uL (130-400); RED BLOOD CELL COUNT(AUTO) 3.34 MIL/uL (4.50-6.20); RED CELL DISTRIBUTION WIDTH 15.4 % (11.0-15.5); WHITE BLOOD COUNT (AUTO) 11.2 K/uL (4.8-10.8)
[2019-12-18] MEDS: INSULIN HUMULIN R 100 UNIT/ML 3ML SQ SCH ×4 (06:44→23:36)
[2019-12-18 06:56] LABS: MAGNESIUM 1.5 mg/dL (1.80-2.40); PHOSPHORUS 1.8 mg/dL (2.5-4.9); POTASSIUM 3.6 mmol/L (3.5-5.1)
[2019-12-18] MEDS: DOCUSATE NA 100MG/10ML UDCUP PO SCH ×2 (08:09→21:42)
[2019-12-18] MEDS: POTASSIUM CHLORIDE 10% ELIXIR 20 MEQ/15 ML UDCUP PO PRN ×2 (08:09→10:35)
[2019-12-18] MEDS: LUBIPROSTONE 24 MCG CAP PO SCH ×2 (08:09→17:06)
[2019-12-18] MEDS: MAGNESIUM 2GM PREMIX 50ML 50 ML IV SCH (08:09)
[2019-12-18] MEDS: PANTOPRAZOLE 40 MG/VIAL IVP SCH (08:10)
[2019-12-18] MEDS: THIAMINE HCL 100 MG/ML 2ML VIAL IVP SCH (08:10)
[2019-12-18] MEDS: FLUCONAZOLE 200 MG/NS 100 ML 100 ML IV SCH (09:27)
[2019-12-18] MEDS ORDERED: METOPROLOL TARTRATE 1 MG/ML 5ML VIAL IV ONE (12:21)
[2019-12-18] MEDS: LINEZOLID 600 MG/ISO-OSM 300 ML IV SCH (12:22)
[2019-12-18 13:26] LABS: POTASSIUM 3.8 mmol/L (3.5-5.1)
--- NOTE | 2019-12-18 17:01 | NUR ---
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
[2019-12-18] MEDS: METOPROLOL TARTRATE 1 MG/ML 5ML VIAL IV PRN (19:45)
[2019-12-19] VITALS (23 sets, daily range): BP systolic 107–155; BP diastolic 69–96
[2019-12-19] MEDS: LINEZOLID 600 MG/ISO-OSM 300 ML IV SCH ×3 (00:06→23:54)
[2019-12-19] MEDS: FUROSEMIDE 10 MG/ML 2ML VIAL IVP SCH (00:07)
[2019-12-19] MEDS: METOPROLOL TARTRATE 1 MG/ML 5ML VIAL IV PRN ×2 (03:56→10:25)
[2019-12-19] MEDS: INSULIN HUMULIN R 100 UNIT/ML 3ML SQ SCH ×4 (04:48→21:16)
[2019-12-19 04:58] LABS: BASOPHILS % (AUTO) 0.3 % (0.0-5.0); EOSINOPHILS % (AUTO) 2.9 % (0.0-8.0); HEMATOCRIT 33.3 % (42-54); MEAN CORPUSCULAR HEMOGLOBIN 31.3 pg (27.0-33.0); MEAN CORPUSCULAR HGB CONC 32.4 g/dL (32.0-36.0); MEAN CORPUSCULAR VOLUME 96.5 fL (79-99); MONOCYTES % (AUTO) 8.9 % (3.0-13.0); NEUTROPHILS % (AUTO) 73.5 % (40.0-77.0); PLATELET COUNT (AUTO) 285 K/uL (130-400); RED BLOOD CELL COUNT(AUTO) 3.45 MIL/uL (4.50-6.20); RED CELL DISTRIBUTION WIDTH 14.9 % (11.0-15.5); WHITE BLOOD COUNT (AUTO) 10.1 K/uL (4.8-10.8)
[2019-12-19 05:23] LABS: ALBUMIN 2.4 g/dL (3.5-5.0); BILIRUBIN,DIRECT 0.4 mg/dL (0.0-0.3); BILIRUBIN,TOTAL 1.1 mg/dL (0.2-1.0); CREATININE 1.9 mg/dL (0.5-1.5); MAGNESIUM 1.7 mg/dL (1.80-2.40); POTASSIUM 3.4 mmol/L (3.5-5.1); TOTAL PROTEIN, SERUM 6.7 g/dL (6.0-8.3)
[2019-12-19] MEDS: IPRATROPIUM/ALBUTEROL SULFATE 3 ML SOLUTION IH PRN ×2 (06:14→18:44)
--- NOTE | 2019-12-19 07:46 | NUR ---
PT IS ORIENTED TO NAME ONLY- HE IS DELIRIOUS IN HIS CONVERSATIONS. KEEPS LOOKING FOR HIS "KEYS". OTHERWISE STABLE
--- NOTE | 2019-12-19 08:17 | NUR ---
BIPAP REMOVED-PT NEVER STOPS TALKING- 02 NASAL CANNULA. GIVEN A FACIAL SHAVE. DRESSING CHANGE TO RT JUGULAR TRIALYSIS CATH
[2019-12-19] MEDS: DOCUSATE NA 100MG/10ML UDCUP PO SCH ×2 (08:27→20:16)
[2019-12-19] MEDS: LUBIPROSTONE 24 MCG CAP PO SCH ×2 (08:38→16:28)
[2019-12-19] MEDS: FOLIC ACID 1 MG TABLET NG SCH (08:39)
[2019-12-19] MEDS: MAGNESIUM 2GM PREMIX 50ML 50 ML IV SCH (08:39)
[2019-12-19] MEDS: THIAMINE HCL 100 MG/ML 2ML VIAL IVP SCH (08:39)
[2019-12-19] MEDS: POTASSIUM CHLORIDE 20MEQ/100ML 100 ML IV PRN (08:39)
[2019-12-19] MEDS: FLUCONAZOLE 200 MG/NS 100 ML 100 ML IV SCH (08:40)
[2019-12-19] MEDS: PANTOPRAZOLE 40 MG/VIAL IVP SCH (08:42)
--- NOTE | 2019-12-19 09:10 | NUR ---
DYSPHAGIA EVAL COMPLETED. NO S/S OF ASPIRATION AT THIS TIME. RECOMMEND MECHANICAL SOFT/CHOPPED, THIN LIQUIDS, PILLS WHOLE WITH LIQUIDS TOLERATED. RADIO MESSAGE ROUTER REVIEWED RESULTS AND RECOMMENDATIONS WITH Pt AND SPOUSE (FARIDEH) OVER THE PHONE. EDUCATION ON RISKS AND CONSEQUENCES OF ASPIRATION WERE PROVIDED TO BOTH Pt AND SPOUSE. ALL QUESTIONS ANSWERED AT THIS TIME. RADIO MESSAGE ROUTER COORDINATED CARE WITH NURSE DONALD. Addendum: 12/19/[address] KARLI BLANCO Amended: Links added.
--- NOTE | 2019-12-19 11:40 | NUR ---
DC PLAN VISITED WITH PATIENT. PATIENT CONFUSED WITH MITTENS. PENDING SPEECH TIARA. SPOKE TO NURSE PATIENT STILL IN ICU AND NOT READY TO TRANSFER TO PCCU. NOT APPROPRIATE YET FOR REFERRAL TO IRU. JAYANT SIGNED FOR [facility] IRU ONCE PATIENT IS STABLE AND RDY FOR TRANSFER WILL SUBMITT REFERRAL. Addendum: 12/19/19 at 1142 by ALVARO ONEILL RN CM Amended: Links added.
--- NOTE | 2019-12-19 12:30 | NUR ---
PT PLACED ON BIPAP PRN FATIGUE AFTER BED BATH
[2019-12-19] MEDS: MEROPENEM 1 GM VIAL IVP SCH ×2 (12:49→23:54)
[2019-12-19] MEDS: NEUTRA-PHOS PACKET 1 EACH PO SCH ×3 (13:31→20:16)
--- NOTE | 2019-12-19 14:30 | NUR ---
MILLER CATH AND NG TUBE REMOVED INTACT
[2019-12-19] MEDS: METOPROLOL TARTRATE 25 MG TAB PO SCH ×2 (14:31→20:19)
--- NOTE | 2019-12-19 15:24 | NUR ---
BIPAP REMOVED -02NC 4L . HE WANTED TO EAT APPLESAUCE
--- NOTE | 2019-12-19 15:51 | NUR ---
PT CONTINUES WITH SLEEPLESSNESS/AGITATION/DELIRIUM...PT WILL BE STARTED ON PRECEDEX INFUSION PER MD ORDERS. HOLD PCCU TRANSFER
[2019-12-19] MEDS: DEXMEDETOMIDINE HCL 200 MCG in SODIUM CHLORIDE 0.9% 50 ML IV SCH (16:41)
--- NOTE | 2019-12-19 19:11 | NUR ---
HAND OFF REPORT GIVEN TO WESTLEY SAUL
--- NOTE | 2019-12-19 19:35 | NUR ---
ASSESSMENT PT AGITATED, RESTLESS, HOSTILE, RESPONDS TO QUESTIONS ALTERNATING BETWEEN APPROPRIATELY AND INAPPROPRIATELY. PT ALTERNATING BETWEEN COOPERATIVE AND UNCOOPERATIVE. ORIENTED TO SELF. ASSESSMENT COMPLETED, SEE FLOW SHEET. CALLBELL WITHIN REACH.
[2019-12-19] MEDS ORDERED: LORAZEPAM 2 MG/ML 1 ML VIAL ONE (20:29)
--- NOTE | 2019-12-19 20:35 | NUR ---
AGGRESSIVE/AGITATED PT AGGRESSIVE/AGITATED, TRYING TO GET OUT OF BED. EXPLAINED TO PT NEED TO STAY IN BED. PT BECAME VERBALLY ABUSIVE AND TRYING TO GET OUT OF BED. ERIKA [employer] GUARD CALLED AND MADE AWARE OF PT STATUS, SET RATE OF PRECEDEX. SEE ORDERS. ERIKA NUGENT AT BEDSIDE AT 2034.
[2019-12-19] MEDS ORDERED: LORAZEPAM 2 MG/ML 1 ML VIAL IVP ONE (20:45)
--- NOTE | 2019-12-19 23:00 | NUR ---
ASSESSMENT PT RESTING IN BED WITH EYES CLOSED, PT NOTED TO BE RESTLESS. BIPAP IN PLACE. ASSESSMENT COMPLETED, SEE FLOW SHEET.
[2019-12-20] VITALS (18 sets, daily range): BP systolic 93–143; BP diastolic 59–81
[2019-12-20] MEDS ORDERED: LORAZEPAM 2 MG/ML 1 ML VIAL IVP PRN (02:19)
--- NOTE | 2019-12-20 02:19 | NUR ---
COMBATIVE/AGITATED PT COMBATIVE (PT KICKED RN), AGITATED, TRYING TO GET OUT OF BED. WASHING AND SCREENING PLANT SUPERVISOR CALLED. ORDERS RECEIVED FOR ATIVAN PRN
[2019-12-20] MEDS ORDERED: LORAZEPAM 2 MG/ML 1 ML VIAL ONE (02:21)
[2019-12-20 04:13] LABS: BASOPHILS % (AUTO) 0.4 % (0.0-5.0); EOSINOPHILS % (AUTO) 3.2 % (0.0-8.0); LYMPHOCYTES % (AUTO) 12.6 % (21.0-51.0); MEAN CORPUSCULAR HEMOGLOBIN 31.1 pg (27.0-33.0); MEAN CORPUSCULAR HGB CONC 31.9 g/dL (32.0-36.0); MEAN CORPUSCULAR VOLUME 97.6 fL (79-99); MONOCYTES % (AUTO) 10.4 % (3.0-13.0); NEUTROPHILS % (AUTO) 72.1 % (40.0-77.0); PLATELET COUNT (AUTO) 250 K/uL (130-400); RED BLOOD CELL COUNT(AUTO) 3.28 MIL/uL (4.50-6.20); RED CELL DISTRIBUTION WIDTH 15.1 % (11.0-15.5)
[2019-12-20 04:41] LABS: ALANINE AMINOTRANSFERASE 61 U/L (12-78); ALBUMIN 2.3 g/dL (3.5-5.0); ASPARTATE AMINOTRANSFERASE 100 U/L (10-37); CARBON DIOXIDE 35 mmol/L (21-32); CHLORIDE 112 mmol/L (101-111); CREATININE 1.9 mg/dL (0.5-1.5); GLOMERULAR FILTR. RATE CALC 37 mL/min (>60); GLUCOSE,RANDOM 175 mg/dL (70-105); PHOSPHORUS 3.6 mg/dL (2.5-4.9); SODIUM SERUM 151 mmol/L (136-145); TOTAL PROTEIN, SERUM 6.1 g/dL (6.0-8.3); UREA NITROGEN, BLOOD 34 mg/dL (7-18)
[2019-12-20] MEDS: INSULIN HUMULIN R 100 UNIT/ML 3ML SQ SCH ×4 (05:52→20:56)
[2019-12-20] MEDS: IPRATROPIUM/ALBUTEROL SULFATE 3 ML SOLUTION IH PRN ×2 (06:30→18:40)
[2019-12-20] MEDS: LUBIPROSTONE 24 MCG CAP PO SCH (07:17)
[2019-12-20] MEDS: DOCUSATE NA 100MG/10ML UDCUP PO SCH ×2 (07:18→20:56)
[2019-12-20] MEDS: METOPROLOL TARTRATE 25 MG TAB PO SCH ×3 (07:18→20:56)
[2019-12-20] MEDS: FOLIC ACID 1 MG TABLET NG SCH (07:18)
[2019-12-20] MEDS: NEUTRA-PHOS PACKET 1 EACH PO SCH (07:18)
[2019-12-20] MEDS: FLUCONAZOLE 200 MG/NS 100 ML 100 ML IV SCH (08:56)
[2019-12-20] MEDS: PANTOPRAZOLE 40 MG/VIAL IVP SCH (08:56)
--- NOTE | 2019-12-20 09:00 | NUR ---
PT NOW HAS AWOKEN- HE HAS PULLED HIS BIPAP OFF. I HAD TO REORIENT HIM TO PLACE AND SITUATION. HE IS NOW CALM. PLACED ON 4L/NC. FLUIDS OFFERED
[2019-12-20] MEDS: THIAMINE HCL 100 MG/ML 2ML VIAL IVP SCH (09:01)
[2019-12-20] MEDS: DEXMEDETOMIDINE HCL 200 MCG in SODIUM CHLORIDE 0.9% 50 ML IV SCH (09:08)
--- NOTE | 2019-12-20 09:10 | NUR ---
FOLLOW UP COMPLETED BINDING STITCHER COORDINATED WITH NURSE DONALD. PER NURSE, Pt IS TOLERATING DIET WITH NO S/S OF ASPIRATION AT THIS TIME. RECOMMEND THE CONTINUATION OF CURRENT DIET TOLERATED. NOTIFY BINDING STITCHER IF STATUS CHANGES. Addendum: 12/20/[address] FRANCIS Amended: Links added.
[2019-12-20] MEDS: MEROPENEM 1 GM VIAL IVP SCH (13:26)
[2019-12-20] MEDS: LINEZOLID 600 MG/ISO-OSM 300 ML IV SCH (13:26)
--- NOTE | 2019-12-20 15:17 | NUR ---
DC PLAN RECOMMENDATION FOR [facility] MENTIONED. PATIENT IS CONFUSED WITH MITTENS AND 1:1. [facility] DOES NOT TAKE PATIENT WITH 1:1. SPOKE TO NURSE SAID PATIENT IS STILL UNSTABLE FOR TRANSFER. CM WILL CONTINUE TO FOLLOW. ONCE PATIENT CLOSER TO 1:1 REMOVED WILL CALL DAUGHTER FOR [facility] JAYANT. AT THIS TIME ONLY HAVE CONSENT FOR IRU. Addendum: 12/20/19 at 1519 by ALVARO ONEILL RN CM Amended: Links added.
--- NOTE | 2019-12-20 15:25 | NUR ---
RD FOLLOW UP NOTE Pt extubated 12/16/19. Diet advanced to GI Soft/Zapata, 75gm CC, No concentrated Sweets. Pt with poor PO intake, 25%. BLE 2+ edema. Recommend add Glucerna BID RD to continue to monitor. Please notify as additional nutrition concerns arise. Thank you. Addendum: 12/20/19 at [address] Amended: Links added.
[2019-12-20] MEDS: DEXTROSE 5 %-0.45 % NACL 1,000 ML IV SCH (17:51)
--- NOTE | 2019-12-20 19:32 | NUR ---
HAND OFF REPORT GIVEN TO WESTLEY SAUL
--- NOTE | 2019-12-20 20:30 | NUR ---
ASSESSMENT PT RESTING QUIETLY IN BED. PT AAOX2. COOPERATIVE, PLEASANT, COOPERATIVE, DENIES ANY PAIN. SPOKE WITH DAUGHTER MARIE MADE AWARE PT IS TRANSFERRING TO ROOM 420. ASSESSMENT COMPLETED, SEE FLOW SHEET.
--- NOTE | 2019-12-20 21:48 | NUR ---
REPORT REPORT CALLED TO MALENA SAUL. PT PENDING TRANSFER TO ROOM 420.
--- NOTE | 2019-12-20 22:00 | NUR ---
ROOM 420 PT ORIENTED TO ROOM. PERSONAL BELONGING WITH PT INCLUDING CELL PHONE AND DAIRY HUSBANDRY TEACHER. PT REMAINS A 1:1
[2019-12-21] MEDS: MEROPENEM 1 GM VIAL IVP SCH ×2 (00:23→13:14)
[2019-12-21] MEDS: LINEZOLID 600 MG/ISO-OSM 300 ML IV SCH ×2 (00:24→13:14)
[2019-12-21 03:52] VITALS: BP 139/80
[2019-12-21 04:11] LABS: BASOPHILS % (AUTO) 0.3 % (0.0-5.0); EOSINOPHILS % (AUTO) 4.8 % (0.0-8.0); HEMATOCRIT 31.9 % (42-54); LYMPHOCYTES % (AUTO) 12.3 % (21.0-51.0); MEAN CORPUSCULAR HGB CONC 31.7 g/dL (32.0-36.0); MEAN CORPUSCULAR VOLUME 97.9 fL (79-99); MONOCYTES % (AUTO) 8.5 % (3.0-13.0); NEUTROPHILS % (AUTO) 73.1 % (40.0-77.0); PLATELET COUNT (AUTO) 248 K/uL (130-400); RED BLOOD CELL COUNT(AUTO) 3.26 MIL/uL (4.50-6.20); RED CELL DISTRIBUTION WIDTH 14.6 % (11.0-15.5); WHITE BLOOD COUNT (AUTO) 9.5 K/uL (4.8-10.8)
[2019-12-21 05:16] LABS: ALANINE AMINOTRANSFERASE 74 U/L (12-78); ALBUMIN 2.4 g/dL (3.5-5.0); ASPARTATE AMINOTRANSFERASE 119 U/L (10-37); CARBON DIOXIDE 31 mmol/L (21-32); CHLORIDE 106 mmol/L (101-111); CREATININE 1.6 mg/dL (0.5-1.5); GLOMERULAR FILTR. RATE CALC 45 mL/min (>60); GLUCOSE,RANDOM 182 mg/dL (70-105); PHOSPHORUS 2.6 mg/dL (2.5-4.9); POTASSIUM 3.3 mmol/L (3.5-5.1); SODIUM SERUM 143 mmol/L (136-145); TOTAL PROTEIN, SERUM 6.1 g/dL (6.0-8.3); UREA NITROGEN, BLOOD 31 mg/dL (7-18)
[2019-12-21] MEDS: INSULIN HUMULIN R 100 UNIT/ML 3ML SQ SCH ×4 (06:21→21:00)
[2019-12-21] MEDS: IPRATROPIUM/ALBUTEROL SULFATE 3 ML SOLUTION IH PRN ×2 (06:36→18:36)
[2019-12-21 08:00] VITALS: BP 105/62
[2019-12-21] MEDS: THIAMINE HCL 100 MG/ML 2ML VIAL IVP SCH (08:52)
[2019-12-21] MEDS: FOLIC ACID 1 MG TABLET NG SCH (08:52)
[2019-12-21] MEDS: METOPROLOL TARTRATE 25 MG TAB PO SCH ×2 (08:52→20:16)
[2019-12-21] MEDS: FLUCONAZOLE 200 MG/NS 100 ML 100 ML IV SCH (08:54)
[2019-12-21] MEDS: PANTOPRAZOLE 40 MG/VIAL IVP SCH (09:00)
[2019-12-21 11:10] VITALS: BP 113/86
[2019-12-21] MEDS: DEXTROSE 5 %-0.45 % NACL 1,000 ML IV SCH (11:15)
[2019-12-21] MEDS: DOCUSATE NA 100MG/10ML UDCUP PO SCH ×2 (13:27→20:21)
--- NOTE | 2019-12-21 15:24 | NUR ---
CM Note: [facility] pending approval CM spoke to pt's daughter Kranthi Tran [phone], agreeable for [facility],telephone JAYANT consent obtained. Faxed order, clinicals, rev code, covid pac assessment, confirmation received. Pt pending approval. MOT semi-filled out pending to be completed once approved, flagged in chart. EMS arranged and faxed for tomorrow. Primary nurse aware. CM to cont to follow up.
[2019-12-21 16:10] VITALS: BP 134/73
[2019-12-21 16:51] LABS: INR 1.06 (0.85-1.15); PARTIAL THROMBOPLASTIN TIME 31.9 SEC (26.3-35.5); PROTHROMBIN TIME 11.4 SEC (9.6-11.6)
[2019-12-21 20:04] VITALS: BP 132/63
[2019-12-21 23:51] VITALS: BP 125/68
[2019-12-22] VITALS (7 sets, daily range): BP systolic 96–149; BP diastolic 34–84
[2019-12-22] MEDS: MEROPENEM 1 GM VIAL IVP SCH ×2 (00:24→13:11)
[2019-12-22] MEDS: LINEZOLID 600 MG/ISO-OSM 300 ML IV SCH ×2 (00:24→13:12)
[2019-12-22] MEDS: INSULIN HUMULIN R 100 UNIT/ML 3ML SQ SCH ×4 (06:15→21:00)
[2019-12-22] MEDS: IPRATROPIUM/ALBUTEROL SULFATE 3 ML SOLUTION IH PRN ×2 (06:37→18:48)
[2019-12-22] MEDS: FOLIC ACID 1 MG TABLET NG SCH (08:45)
[2019-12-22] MEDS: THIAMINE HCL 100 MG/ML 2ML VIAL IVP SCH (08:45)
[2019-12-22] MEDS: DEXTROSE 5 %-0.45 % NACL 1,000 ML IV SCH (08:45)
[2019-12-22] MEDS: METOPROLOL TARTRATE 25 MG TAB PO SCH ×2 (08:46→21:00)
[2019-12-22] MEDS: DOCUSATE NA 100MG/10ML UDCUP PO SCH ×2 (08:46→22:02)
[2019-12-22] MEDS: FLUCONAZOLE 200 MG/NS 100 ML 100 ML IV SCH (08:47)
[2019-12-22] MEDS: PANTOPRAZOLE 40 MG/VIAL IVP SCH (08:53)
--- NOTE | 2019-12-22 09:12 | NUR ---
GABBI NOTE/LENA APPROVED PER JODI CARMONA [facility], PATIENT APPROVED. EMS TRANSFER SET UP, MOT FILLED. PRIMARY NURSE, MARCO SAUL, MADE AWARE.
[2019-12-22] MEDS ORDERED: AMLODIPINE BESYLATE 5 MG TAB PO SCH (10:08)
--- NOTE | 2019-12-22 16:13 | NUR ---
PICC LINE PLACED, CHEST X RAY ORDERED FOR PLACEMENT
[2019-12-22] MEDS ORDERED: METFORMIN HCL 500 MG TABLET PO SCH (17:00)
--- NOTE | 2019-12-22 19:00 | NUR ---
REPORT CALLED TO KO BY MARCO SAUL TO VIDA SAUL
[2019-12-22] MEDS ORDERED: ATORVASTATIN CALCIUM 40 MG TABLET PO SCH (21:00)
--- NOTE | 2019-12-22 22:35 | NUR ---
PT LEFT TO [facility] [address]
[2019-12-23] MEDS ORDERED: LOSARTAN 100 MG TABLET PO SCH (09:00)
[2019-12-23] MEDS ORDERED: HYDROCHLOROTHIAZIDE 25 MG TABLET PO SCH (09:00)
== END 2019-12-22 22:39 | DRG 963 ==
LOC: EDH 15:17 → EDHIP 17:45 → DAHIP 12-10 00:19 → 4CH 12-20 22:11
PROVIDERS: ADMIT Internal Medicine; ATTEND Internal Medicine
PROC: 5A1955Z Respiratory Ventilation, Greater than 96 Consecutive Hours (ICD-10-PCS; principal; 2019-12-10)
PROC: 0BH17EZ Insertion of Endotracheal Airway into Trachea, Via Natural or Artificial Opening (ICD-10-PCS; 2019-12-10)
PROC: 02HV33Z Insertion of Infusion Device into Superior Vena Cava, Percutaneous Approach (ICD-10-PCS; 2019-12-10)
PROC: B548ZZA Ultrasonography of Superior Vena Cava, Guidance (ICD-10-PCS; 2019-12-10)
PROC: 30233K1 Transfusion of Nonautologous Frozen Plasma into Peripheral Vein, Percutaneous Approach (ICD-10-PCS; 2019-12-11)
PROC: 30233N1 Transfusion of Nonautologous Red Blood Cells into Peripheral Vein, Percutaneous Approach (ICD-10-PCS; 2019-12-11)
PROC: 5A1D70Z Performance of Urinary Filtration, Intermittent, Less than 6 Hours Per Day (ICD-10-PCS; 2019-12-12)
PROC: 5A1D70Z Performance of Urinary Filtration, Intermittent, Less than 6 Hours Per Day (ICD-10-PCS; 2019-12-13)
PROC: 5A09357 Assistance with Respiratory Ventilation, Less than 24 Consecutive Hours, Continuous Positive Airway Pressure (ICD-10-PCS; 2019-12-14)
PROC: 5A09357 Assistance with Respiratory Ventilation, Less than 24 Consecutive Hours, Continuous Positive Airway Pressure (ICD-10-PCS; 2019-12-15)
PROC: 5A09357 Assistance with Respiratory Ventilation, Less than 24 Consecutive Hours, Continuous Positive Airway Pressure (ICD-10-PCS; 2019-12-16)
PROC: 5A09357 Assistance with Respiratory Ventilation, Less than 24 Consecutive Hours, Continuous Positive Airway Pressure (ICD-10-PCS; 2019-12-17)
PROC: 5A09357 Assistance with Respiratory Ventilation, Less than 24 Consecutive Hours, Continuous Positive Airway Pressure (ICD-10-PCS; 2019-12-18)
PROC: 5A09357 Assistance with Respiratory Ventilation, Less than 24 Consecutive Hours, Continuous Positive Airway Pressure (ICD-10-PCS; 2019-12-19)
PROC: 5A09357 Assistance with Respiratory Ventilation, Less than 24 Consecutive Hours, Continuous Positive Airway Pressure (ICD-10-PCS; 2019-12-20)
PROC: 5A09357 Assistance with Respiratory Ventilation, Less than 24 Consecutive Hours, Continuous Positive Airway Pressure (ICD-10-PCS; 2019-12-21)
PROC: 5A09357 Assistance with Respiratory Ventilation, Less than 24 Consecutive Hours, Continuous Positive Airway Pressure (ICD-10-PCS; 2019-12-22)
DX: S37.019A Minor contusion of unspecified kidney, initial encounter (principal); A41.9 Sepsis, unspecified organism; S36.892A Contusion of other intra-abdominal organs, initial encounter; J96.01 Acute respiratory failure with hypoxia; N17.0 Acute kidney failure with tubular necrosis; I46.9 Cardiac arrest, cause unspecified; R57.1 Hypovolemic shock; J69.0 Pneumonitis due to inhalation of food and vomit; R57.8 Other shock; J96.21 Acute and chronic respiratory failure with hypoxia; R65.20 Severe sepsis without septic shock; E87.2 Acidosis; D62 Acute posthemorrhagic anemia; I48.20 Chronic atrial fibrillation, unspecified; Z68.41 Body mass index [BMI] 40.0-44.9, adult; E87.4 Mixed disorder of acid-base balance; E87.0 Hyperosmolality and hypernatremia; G93.40 Encephalopathy, unspecified; Z95.0 Presence of cardiac pacemaker; E78.5 Hyperlipidemia, unspecified; E11.9 Type 2 diabetes mellitus without complications; E66.01 Morbid (severe) obesity due to excess calories; Z79.01 Long term (current) use of anticoagulants; N18.9 Chronic kidney disease, unspecified; D72.828 Other elevated white blood cell count; E11.65 Type 2 diabetes mellitus with hyperglycemia; E83.42 Hypomagnesemia; E87.6 Hypokalemia; F10.10 Alcohol abuse, uncomplicated; I25.10 Atherosclerotic heart disease of native coronary artery without angina pectoris; I34.0 Nonrheumatic mitral (valve) insufficiency; I48.0 Paroxysmal atrial fibrillation; I49.5 Sick sinus syndrome; K44.9 Diaphragmatic hernia without obstruction or gangrene; X58.XXXA Exposure to other specified factors, initial encounter; Y93.89 Activity, other specified; Y92.89 Other specified places as the place of occurrence of the external cause; Y99.8 Other external cause status; L89.899 Pressure ulcer of other site, unspecified stage; Z74.01 Bed confinement status; Z82.3 Family history of stroke; Z82.49 Family history of ischemic heart disease and other diseases of the circulatory system; Z83.3 Family history of diabetes mellitus; Z87.891 Personal history of nicotine dependence; Z96.653 Presence of artificial knee joint, bilateral; Z99.81 Dependence on supplemental oxygen; G47.30 Sleep apnea, unspecified; E87.8 Other disorders of electrolyte and fluid balance, not elsewhere classified
CPT/HCPCS: 31500; 36415; 36430; 36600; 70450; 71045; 74018; 74176; 74178; 80048; 80053; 80061; 80076; 81001; 82270; 82435; 82570; 82803; 82947; 82948; 83036; 83540; 83550; 83605; 83735; 84100; 84132; 84145; 84295; 84300; 84443; 84484; 84540; 85018; 85025; 85027; 85384; 85610; 85730; 86701; 86704; 86706; 86850; 86900; 86901; 86922; 86927; 87040; 87071; 87088; 87205; 87340; 87390; 87520; 90935; 92610; 92950; 93005; 93306; 94002; 94003; 94150; 94640; 94660; 94664; 97039; A6250; C1751; C1894; C9113; G0378; J0330; J1450; J1644; J1815; J1940; J2020; J2060; J2185; J2405; J2543; J2597; J3010; J3370; J3411; J3475; J3480; J3490; J7030; J7040; J7042; J7050; J7060; J7120; P9016; P9017; P9046; Q9967

== ENCOUNTER → 2023-08-20 | Outpatient (CLI) | payer MEDICARE, OTHER ==
[~2023-08-20] MED LIST changes: +APIX5TAB PO; +ASPI-556 PO; -ETOMIDATE 2 MG/ML 10 ML VIAL IVP ONE; -EXEN10PE3 SQ; -LOSA100T58 PO; +LOSA100T59 PO; +METF-444 PO; -SUCCINYLCHOLINE CHLORIDE 20 MG/ML 10 ML VIAL IVP ONE
== END | disposition home or self-care (01) ==
LOC: SHCH 08:28
PROVIDERS: ATTEND Internal Medicine Cardiovascular Disease
DX: I11.9 Hypertensive heart disease without heart failure (principal); I44.2 Atrioventricular block, complete; E11.9 Type 2 diabetes mellitus without complications; E78.5 Hyperlipidemia, unspecified; Z95.0 Presence of cardiac pacemaker
CPT/HCPCS: 93306

== ENCOUNTER 2023-09-09 06:03 | Day surgery (SDC) | payer MEDICARE, OTHER ==
[2023-09-07 13:51] VITALS: BP 125/71; PULSE 70; RESP 16
[2023-09-07 13:51] LABS: BASOPHILS # (AUTO) 0.02 K/uL (0.00-0.20); BASOPHILS % (AUTO) 0.3 % (0.0-5.0); EOSINOPHILS # (AUTO) 0.12 K/uL (0.00-0.70); EOSINOPHILS % (AUTO) 1.9 % (0.0-8.0); HEMATOCRIT 38.5 % (42-54); IMMATURE GRANULOCYTE ABSOLUTE 0.02 K/uL (0-1); LYMPHOCYTES # (AUTO) 1.4 K/uL (1.0-4.8); LYMPHOCYTES % (AUTO) 22.6 % (21.0-51.0); MEAN CORPUSCULAR HGB CONC 34.8 g/dL (32.0-36.0); MEAN CORPUSCULAR VOLUME 94.8 fL (79-99); MONOCYTES # (AUTO) 0.6 K/uL (0.1-1.0); MONOCYTES % (AUTO) 9.3 % (3.0-13.0); NEUTROPHILS # (AUTO) 4.1 K/uL (1.8-7.7); NEUTROPHILS % (AUTO) 65.6 % (40.0-77.0); PLATELET COUNT (AUTO) 178 K/uL (130-400); RED BLOOD CELL COUNT(AUTO) 4.06 MIL/uL (4.50-6.20); RED CELL DISTRIBUTION WIDTH 12.6 % (11.0-15.5); WHITE BLOOD COUNT (AUTO) 6.2 K/uL (4.8-10.8)
[2023-09-07 13:56] LABS: CREATININE 1.2 mg/dL (0.5-1.5); POTASSIUM 3.8 mmol/L (3.5-5.1)
[~2023-09-09] VITALS: Ht 172.7 cm; Wt 97.9 kg
[2023-09-09] VITALS (7 sets, daily range): BP systolic 115–129; BP diastolic 65–86; PULSE 61–73; RESP 16
[~2023-09-09 06:03] MED LIST changes: -APIX5TAB PO; -ASPI-556 PO; -ATEN25TA PO; +CYAN-118 PO; +LUTE20TA PO; +METO25TA6 PO
[2023-09-09] MEDS: 0.9%NACL 1000ML 1,000 ML IV ONE (06:38)
[2023-09-09] MEDS ORDERED: CEFAZOLIN SODIUM 1 GM VIAL ONE (07:04)
[2023-09-09] MEDS ORDERED: LIDOCAINE HCL 1% MDV 50ML VIAL ONE (07:04)
[2023-09-09] MEDS ORDERED: MEPERIDINE-PF 25 MG/ML SYG ONE ×2 (07:04→07:55)
[2023-09-09] MEDS ORDERED: BUPIVACAINE/PF 0.25% 30ML VIAL IJ ONE (07:05)
[2023-09-09] MEDS ORDERED: MIDAZOLAM HCL 1 MG/ML 2ML VIAL ONE ×2 (07:05→07:55)
[2023-09-09] MEDS ORDERED: IOHEXOL 350 MG/ML 100ML INFUS..BTL IV ONE (07:09)
[2023-09-09] MEDS ORDERED: BACITRACIN 1 EACH PACKET TP ONE (09:23)
[2023-09-09] MEDS ORDERED: TRAM50TA4 PO (09:52)
[2023-09-09] MEDS ORDERED: ACETAMINOPHEN 500 MG TABLET PO PRN (10:00)
[2023-09-09] MEDS ORDERED: ACETAMINOPHEN WITH CODEINE 1 TAB TAB PO PRN (10:00)
== END 2023-09-09 12:10 | disposition home or self-care (01) ==
LOC: DAH 06:03
PROVIDERS: ATTEND Internal Medicine Cardiovascular Disease
DX: I44.2 Atrioventricular block, complete (principal); I42.0 Dilated cardiomyopathy; I48.21 Permanent atrial fibrillation; I49.1 Atrial premature depolarization; I11.0 Hypertensive heart disease with heart failure; I50.22 Chronic systolic (congestive) heart failure; E11.9 Type 2 diabetes mellitus without complications; G47.33 Obstructive sleep apnea (adult) (pediatric); E78.5 Hyperlipidemia, unspecified; Z87.891 Personal history of nicotine dependence; Z79.84 Long term (current) use of oral hypoglycemic drugs; Z79.899 Other long term (current) drug therapy
CPT/HCPCS: 80048; 85025; 36415; 93005; 33229; 33225; 82948; 71045; C1769; C1900; C2621; J0690; J7030; J0665; J2250 ×2; J2175 ×2; J3490; Q9967; A4215; A6251; A4222; A4221; A4663; A4216; A6258; A4606; Q9965; A4223 ×3; 99156; 99157